=== PATIENT | male | born 1995 | race African-American/Black ===

== ENCOUNTER 2023-04-21 17:28 | Emergency (ER) | payer MEDICAID ==
[~2023-04-21] VITALS: Ht 172.7 cm; Wt 99.8 kg
--- NOTE | 2023-04-21 17:35 | NUR ---
PT TAKEN TO BED 06 BY CHAYITO
[2023-04-21 17:36] VITALS: BP 139/86; PULSE 100; RESP 20; TEMP 98; O2SAT 100
[2023-04-21 17:38] VITALS: BP 121/82; PULSE 89; RESP 18; TEMP 97.8; O2SAT 96
[2023-04-21 17:40] VITALS: BP 139/86; TEMP 98
[2023-04-21 18:30] VITALS: O2SAT 100
--- NOTE | 2023-04-21 18:30 | NUR ---
27YO MALE PT MITCHELL GUADARRAMA C/O ANXIETY X1HR. REPORTS SUDDEN ONSET WHILE EATING W/ MILD CHEST PRESSURE. DENIES TRIGGER, N/V, SOB OR TAKING MEDICATION. PT AAOX4, SPEAKING IN CLEAR FULL SENTENCES. RESPIRATIONS EVEN AND UNLABORED. HOB POSITIONED PER COMFORT. CALL LIGHT WITHIN REACH. HX:DENIES NKA
--- NOTE | 2023-04-21 18:37 | NUR ---
MD CARD AT BEDSIDE FOR EVALUATION
[2023-04-21] MEDS ORDERED: LORazepam 1 MG TAB PO ONE (18:45)
[2023-04-21] MEDS ORDERED: HYDR25CA1 PO (18:58)
--- NOTE | 2023-04-21 19:22 | NUR ---
REPORT GIVEN TO AUSTEN ANDRES. TRANSFER OF CARE AT THIS TIME
[2023-04-21 19:35] VITALS: PULSE 84; RESP 16; O2SAT 98
--- NOTE | 2023-04-21 19:37 | NUR ---
Patient discharged with v/s stable. Written and verbal after care instructions given and explained. Patient alert, oriented and verbalized understanding of instructions. Ambulatory with steady gait. All questions addressed prior to discharge. ID band removed. Patient advised to follow up with PMD. Rx of VISTARIL given. Patient educated on indication of medication including possible reaction and side effects. Opportunity to ask questions provided and answered.
== END 2023-04-21 19:37 | disposition home or self-care (01) ==
LOC: MED 17:28
DX: F41.1 Generalized anxiety disorder (principal); Z79.899 Other long term (current) drug therapy
CPT/HCPCS: 99283